=== PATIENT | male | born 1995 | race Two or more races ===

== ENCOUNTER 2018-02-10 02:42 | Emergency (ER) | payer MEDICAID, OTHER ==
[~2018-02-10] VITALS: Ht 170.2 cm; Wt 77.3 kg
[~2018-02-10 02:42] MED LIST: BENZ1LOZ61 PO; GUAI120015 PO; NAPR-996 PO; PSEU-259 PO
[2018-02-10 03:11] LABS: BASOPHILS # (AUTO) 0.1 X10'3 (0-0.2); BASOPHILS % (AUTO) 0.7 % (0-1); EOSINOPHILS # (AUTO) 0.2 X10'3 (0-0.9); EOSINOPHILS % (AUTO) 1.7 % (0-6); HEMATOCRIT 49.4 % (42.0-52.0); HEMOGLOBIN 16.9 g/dl (14.0-17.9); LYMPHOCYTES # (AUTO) 3.5 X10'3 (1.1-4.8); MEAN CORPUSCULAR HGB CONC 34.2 % (33.0-36.5); MEAN CORPUSCULAR VOLUME 93.6 FL (78-98); MEAN PLATELET VOLUME 8.1 FL (7.4-10.4); MONOCYTES # (AUTO) 0.5 X10'3 (0-0.9); NEUTROPHILS # (AUTO) 4.9 X10'3 (1.8-7.7); NEUTROPHILS % (AUTO) 53.6 % (42-75); PLATELET COUNT 263 X10'3 (140-440); RED BLOOD COUNT 5.28 X10'6 (4.70-6.10); RED CELL DISTRIBUTION WIDTH 14.2 % (11.5-14.5); WHITE BLOOD COUNT 9.1 X10'3 (4.5-11.0)
[2018-02-10 03:21] LABS: PARTIAL THROMBOPLASTIN TIME 24 SECONDS (22-32)
[2018-02-10 03:24] LABS: ALANINE AMINOTRANSFERASE 264 U/L (12-78); ALBUMIN 4.1 G/DL (3.4-5.0); ALBUMIN/GLOBULIN RATIO 0.8 (1.1-1.5); ALKALINE PHOSPHATASE 78 IU/L (46-116); ANION GAP 10 (8-16); ASPARTATE AMINO TRANSFERASE 115 U/L (10-37); BILIRUBIN,TOTAL 0.7 MG/DL (0.1-1.0); BLOOD UREA NITROGEN 12 MG/DL (7-18); BUN/CREATININE RATIO 10.5 (5.4-32.0); CALCIUM 8.8 MG/DL (8.5-10.1); CHLORIDE 103 MMOL/L (99-107); CREATININE 1.14 MG/DL (0.60-1.10); GLUCOSE 161 MG/DL (70-104); POTASSIUM 3.6 MMOL/L (3.5-5.1); SODIUM 140 MMOL/L (135-145); TOTAL CARBON DIOXIDE 26.6 MMOL/L (24-32); TOTAL PROTEIN 9.3 G/DL (6.4-8.2); eGFR 80 ML/MIN
[2018-02-10] MEDS ORDERED: normal saline 1000ML IV soln IVB ONE (03:35)
[2018-02-10 03:45] LABS: URINE AMPHETAMINE SCREEN NEGATIVE (Neg); URINE BARBITUATE SCREEN NEGATIVE (Neg); URINE BENZODIAZEPINES SCREEN NEGATIVE (Neg); URINE CANNABINOID SCREEN NEGATIVE (Neg); URINE COCAINE SCREEN NEGATIVE (Neg); URINE METHADONE SCREEN NEGATIVE (Neg); URINE OPIATE SCREEN NEGATIVE (Neg); URINE PHENCYCLIDINE SCREEN NEGATIVE (Neg)
[2018-02-10 03:48] LABS: CLARITY,URINE CLEAR (Clear); COLOR,URINE YELLOW (Yellow); GLUCOSE, URINE NEGATIVE (Neg); KETONES,URINE NEGATIVE (Neg); LEUKOCYTE ESTERASE ,URINE NEGATIVE (Neg); NITRITES, URINE NEGATIVE (Neg); OCCULT BLOOD,URINE LARGE (Neg); PROTEIN,URINE NEGATIVE (Neg); UROBILINOGEN,URINE 0.2 E.U/dL (0.2-1.0)
[2018-02-10 03:51] LABS: ETHANOL 0.135 GM/DL (0.0-0.010)
[2018-02-10 03:58] LABS: UA COLLECTION TYPE CLN CATCH MIDSTREAM
[2018-02-10 03:59] LABS: BACTERIA,URINE NONE SEEN /HPF (Neg); SQUAMOUS EPITHELIAL CELL,UR NONE SEEN /LPF (FEW); WBC,URINE NONE SEEN /HPF (0-4)
[2018-02-10] MEDS ORDERED: normal saline 1000ml 1,000 ML IV ONE (05:00)
[2018-02-10] MEDS ORDERED: acetaminophen 325mg tablet PO ONE (05:20)
[2018-02-10 05:37] VITALS: BP 125/54
== END 2018-02-10 06:08 | disposition home or self-care (01) ==
LOC: ER 02:42
DX: F10.929 Alcohol use, unspecified with intoxication, unspecified (principal); R07.9 Chest pain, unspecified; R00.0 Tachycardia, unspecified; H53.8 Other visual disturbances; Z79.899 Other long term (current) drug therapy
CPT/HCPCS: 36415; 70450; 71045; 80053; 80305; 80320; 81001; 82140; 83605; 84484; 85025; 85610; 85730; 87040; 93005; 99285; J7030

== ENCOUNTER 2019-12-11 21:46 | Inpatient (IN) | payer MEDICAID ==
[~2019-12-11] VITALS: Ht 170.2 cm; Wt 104.5 kg
[2019-12-11] MEDS ORDERED: morphine 4 MG/ML inj SYRINge IV ONE (22:35)
[2019-12-11] MEDS ORDERED: normal saline 1000ML IV soln IVB ONE ×2 (22:35→23:25)
[2019-12-11] MEDS ORDERED: ondansetron/PF 4mg/2ml inj IV ONE (22:35)
[2019-12-11 22:39] LABS: BASOPHILS # (AUTO) 0.1 X10'3 (0-0.2); BASOPHILS % (AUTO) 1.1 % (0-1); EOSINOPHILS # (AUTO) 0.1 X10'3 (0-0.9); EOSINOPHILS % (AUTO) 0.8 % (0-6); HEMATOCRIT 50.1 % (42.0-52.0); HEMOGLOBIN 17.6 g/dl (14.0-17.9); LYMPHOCYTES # (AUTO) 2.9 X10'3 (1.1-4.8); LYMPHOCYTES % (AUTO) 26.3 % (21-51); MEAN CORPUSCULAR HEMOGLOBIN 33.7 PG (27.0-31.0); MEAN CORPUSCULAR HGB CONC 35.1 g/dL (33.0-36.5); MEAN CORPUSCULAR VOLUME 95.9 FL (78-98); MEAN PLATELET VOLUME 9.8 FL (7.4-10.4); MONOCYTES # (AUTO) 0.7 X10'3 (0-0.9); MONOCYTES % (AUTO) 6.5 % (2-12); NEUTROPHILS # (AUTO) 7.2 X10'3 (1.8-7.7); NEUTROPHILS % (AUTO) 65.3 % (42-75); PLATELET COUNT 292 X10'3 (140-440); RED BLOOD COUNT 5.22 X10'6 (4.70-6.10); RED CELL DISTRIBUTION WIDTH 12.9 % (11.5-14.5)
[2019-12-11 22:40] LABS: CLARITY,URINE CLEAR (Clear); COLOR,URINE STRAW (Yellow); GLUCOSE, URINE >=1000 mg/dl (Neg); KETONES,URINE >=80 mg/dl (Neg); LEUKOCYTE ESTERASE ,URINE NEGATIVE (Neg); NITRITES, URINE NEGATIVE (Neg); OCCULT BLOOD,URINE TRACE-INTACT (Neg); PH,URINE 5.5 (4.8-8.0); PROTEIN,URINE 30 mg/dl (Neg); UROBILINOGEN,URINE 0.2 E.U/dL (0.2-1.0)
[2019-12-11 22:45] LABS: UA COLLECTION TYPE CLN CATCH MIDSTREAM
[2019-12-11 22:48] LABS: ALBUMIN 4.4 G/DL (3.4-5.0); ALBUMIN/GLOBULIN RATIO 0.9 (1.1-1.5); ALKALINE PHOSPHATASE 125 IU/L (46-116); BACTERIA,URINE NONE SEEN /HPF (Neg); BLOOD UREA NITROGEN 13 MG/DL (7-18); CALCIUM 9.1 MG/DL (8.5-10.1); CELLULAR CAST 0-4 /LPF (NEGATIVE); CHLORIDE 93 MMOL/L (99-107); CREATININE 1.44 MG/DL (0.60-1.10); LIPASE 235 U/L (73-393); RBC,URINE 0-2 /HPF (0-2); SQUAMOUS EPITHELIAL CELL,UR NONE SEEN /LPF (FEW); TOTAL CARBON DIOXIDE 15.7 MMOL/L (24-32); TOTAL PROTEIN 9.3 G/DL (6.4-8.2); WBC,URINE 0-4 /HPF (0-4); eGFR 60 ML/MIN
[2019-12-11 23:01] LABS: ALANINE AMINOTRANSFERASE 138 U/L (12-78); ANION GAP 21 (8-16); POTASSIUM 4.2 MMOL/L (3.5-5.1); SODIUM 130 MMOL/L (135-145)
[2019-12-11 23:14] LABS: GLUCOSE 565 MG/DL (70-104)
[2019-12-11 23:15] LABS: ASPARTATE AMINO TRANSFERASE 79 U/L (10-37)
[2019-12-11] MEDS ORDERED: insulin regular, human U-100 3ml vial - multi-dose IV ONE (23:25)
[2019-12-11] MEDS ORDERED: magnesium 4gm in 100ml NS 100 ML IV PRN (23:45)
[2019-12-11] MEDS ORDERED: magnesium 2GM in 50ml NS 50 ML IV PRN (23:45)
[2019-12-11] MEDS ORDERED: potassium CL 10mEq/100ml bag 100 ML IV PRN ×4 (23:45→23:50)
[2019-12-11] MEDS ORDERED: ondansetron/PF 4mg/2ml inj IV PRN (23:45)
[2019-12-11] MEDS ORDERED: normal saline 1000ml 1,000 ML IV SCH ×2 (23:45→23:47)
[2019-12-11] MEDS ORDERED: magnesium Cl slow-release 64mg tablet PO PRN (23:45)
[2019-12-11] MEDS ORDERED: acetaminophen 325mg tablet PO PRN (23:45)
[2019-12-11] MEDS ORDERED: potassium Cl 20 mEq SR tablet PO PRN ×3 (23:45→23:50)
[2019-12-11] MEDS ORDERED: potassium CL 20mEq in D5-1/2NS 1,000 ML IV PRN (23:47)
[2019-12-11] MEDS ORDERED: sodium bicarbonate (8.4%) inj. 50 MEQ in dextrose 5% water 500ml 250 ML IV PRN (23:47)
[2019-12-11] MEDS ORDERED: sodium bicarbonate (8.4%) inj. 100 MEQ in dextrose 5% water 500ml 500 ML IV PRN (23:47)
[2019-12-11] MEDS ORDERED: Insulin Reg/NS 100units/100mL 100 ML IV SCH (23:47)
[2019-12-11] MEDS: normal saline 1000ml 1,000 ML IV SCH (23:47)
[2019-12-11] MEDS ORDERED: Neutra Phos packet PO PRN (23:50)
[2019-12-11] MEDS ORDERED: sodium phosphate inj. 15 MMOL in dextrose 5%-water 250 ML IV PRN (23:50)
[2019-12-11] MEDS ORDERED: insulin regular, human U-100 3ml vial - multi-dose IV PRN (23:50)
[2019-12-11] MEDS ORDERED: sodium phosphate inj. 30 MMOL in dextrose 5%-water 250 ML IV PRN (23:50)
[2019-12-11 23:56] LABS: ABG BASE EXCESS -13.3 mmol/L (-2.0-3.0); ABG HCO3 11.7 mmol/L (22.0-26.0); ABG OXYGEN SATURATION 97.3 % (95-98); ABG PCO2 (T) 25.9 mmHg (35.0-45.0); ABG PO2 (T) 99.6 mmHg (83-108); ALLEN'S TEST POSITIVE; FCOHb 0.5 % (0.5-1.5); FMetHb 0.2 % (0.3-1.12); FO2Hb 96.6 % (94-100); PATIENT TEMPERATURE 36.6; TOTAL HEMOGLOBIN 16.6 G/dl (14.0-17.9)
[2019-12-12] MEDS ORDERED: NO HOME MEDS (00:30)
--- NOTE | 2019-12-12 01:39 | NUR ---
i have rec'd report from Álvaro REESE
--- NOTE | 2019-12-12 02:00 | NUR ---
pt walked to bed. oriented to unit. insulin and ivf running. skin check done.
[2019-12-12 02:04] LABS: ALBUMIN 3.6 G/DL (3.4-5.0); ANION GAP 16 (8-16); BLOOD UREA NITROGEN 9 MG/DL (7-18); BUN/CREATININE RATIO 8.7 (5.4-32.0); CALCIUM 7.7 MG/DL (8.5-10.1); CHLORIDE 103 MMOL/L (99-107); CREATININE 1.04 MG/DL (0.60-1.10); GLUCOSE 205 MG/DL (70-104); MAGNESIUM 1.7 MG/DL (1.5-2.4); PHOSPHORUS 2.3 MG/DL (2.3-4.5); POTASSIUM 3.6 MMOL/L (3.5-5.1); SODIUM 135 MMOL/L (135-145); TOTAL CARBON DIOXIDE 15.7 MMOL/L (24-32); eGFR 88 ML/MIN
[2019-12-12 02:45] VITALS: BP 155/93
[2019-12-12] MEDS: morphine 2 MG/ML inj. syringe IV PRN (02:54)
[2019-12-12] MEDS: normal saline 1000ml 1,000 ML IV SCH ×3 (02:57→23:18)
[2019-12-12 05:03] LABS: BASOPHILS % (AUTO) 0.5 % (0-1); EOSINOPHILS # (AUTO) 0.2 X10'3 (0-0.9); EOSINOPHILS % (AUTO) 1.8 % (0-6); HEMATOCRIT 43.1 % (42.0-52.0); HEMOGLOBIN 15.1 g/dl (14.0-17.9); LYMPHOCYTES # (AUTO) 2.7 X10'3 (1.1-4.8); LYMPHOCYTES % (AUTO) 30.1 % (21-51); MEAN CORPUSCULAR HGB CONC 35.1 g/dL (33.0-36.5); MEAN PLATELET VOLUME 9.3 FL (7.4-10.4); MONOCYTES # (AUTO) 0.6 X10'3 (0-0.9); MONOCYTES % (AUTO) 7.1 % (2-12); NEUTROPHILS # (AUTO) 5.5 X10'3 (1.8-7.7); NEUTROPHILS % (AUTO) 60.5 % (42-75); PLATELET COUNT 221 X10'3 (140-440); RED BLOOD COUNT 4.58 X10'6 (4.70-6.10); RED CELL DISTRIBUTION WIDTH 12.9 % (11.5-14.5); WHITE BLOOD COUNT 9.1 X10'3 (4.5-11.0)
[2019-12-12 05:16] LABS: ALBUMIN 3.4 G/DL (3.4-5.0); ANION GAP 14 (8-16); BLOOD UREA NITROGEN 6 MG/DL (7-18); BUN/CREATININE RATIO 5.9 (5.4-32.0); CALCIUM 7.7 MG/DL (8.5-10.1); CHLORIDE 104 MMOL/L (99-107); CREATININE 1.02 MG/DL (0.60-1.10); GLUCOSE 135 MG/DL (70-104); POTASSIUM 3.3 MMOL/L (3.5-5.1); SODIUM 136 MMOL/L (135-145); TOTAL CARBON DIOXIDE 17.9 MMOL/L (24-32); eGFR 90 ML/MIN
[2019-12-12] MEDS: potassium Cl 20 mEq SR tablet PO PRN ×3 (05:32→16:47)
--- NOTE | 2019-12-12 06:19 | NUR ---
Problems reprioritized. Patient report given, questions answered & plan of care reviewed with Nurys REESE.
[2019-12-12] MEDS ORDERED: DEXTROSE 10 % AND 0.45 % NACL 1,000 ML IV SCH (06:20)
[2019-12-12 07:00] VITALS: BP 142/88
[2019-12-12] MEDS ORDERED: Potassium Cl inj 20 MEQ in DEXTROSE 10 % AND 0.45 % NACL 990 ML IV SCH (07:12)
[2019-12-12] MEDS ORDERED: K and/or MAG REPLACEMENT MC SCH (08:00)
[2019-12-12] MEDS: K and/or MAG REPLACEMENT MC SCH ×2 (08:00→20:00)
[2019-12-12] MEDS: pantoprazole 40 MG vial IV SCH (08:03)
[2019-12-12 08:12] LABS: ALANINE AMINOTRANSFERASE 104 U/L (12-78); ALBUMIN 3.4 G/DL (3.4-5.0); ALBUMIN/GLOBULIN RATIO 0.9 (1.1-1.5); ALKALINE PHOSPHATASE 81 IU/L (46-116); ANION GAP 11 (8-16); ASPARTATE AMINO TRANSFERASE 56 U/L (10-37); BILIRUBIN,DIRECT 0.1 MG/DL (0-0.3); BILIRUBIN,TOTAL 0.8 MG/DL (0.1-1.0); BLOOD UREA NITROGEN 8 MG/DL (7-18); BUN/CREATININE RATIO 7.6 (5.4-32.0); CALCIUM 7.9 MG/DL (8.5-10.1); CHLORIDE 105 MMOL/L (99-107); CREATININE 1.05 MG/DL (0.60-1.10); GLUCOSE 76 MG/DL (70-104); PHOSPHORUS 2.6 MG/DL (2.3-4.5); POTASSIUM 3.2 MMOL/L (3.5-5.1); SODIUM 137 MMOL/L (135-145); TOTAL CARBON DIOXIDE 20.9 MMOL/L (24-32); TOTAL PROTEIN 7.4 G/DL (6.4-8.2); eGFR 87 ML/MIN
[2019-12-12] MEDS ORDERED: glucagon, human recombinant 1mg kit SUBCUT PRN (09:20)
[2019-12-12] MEDS ORDERED: MESSAGE TO PHARMACY PO ONE (09:20)
[2019-12-12] MEDS ORDERED: dextrose ORAL solution 15 GM/59 ML bottle PO PRN ×2 (09:20)
[2019-12-12] MEDS ORDERED: dextrose 50%-water 50ml dispensing syringe IV PRN ×2 (09:20)
[2019-12-12 10:09] LABS: ALBUMIN 3.1 G/DL (3.4-5.0); ANION GAP 9 (8-16); BLOOD UREA NITROGEN 8 MG/DL (7-18); BUN/CREATININE RATIO 7.7 (5.4-32.0); CALCIUM 7.5 MG/DL (8.5-10.1); CHLORIDE 104 MMOL/L (99-107); CREATININE 1.04 MG/DL (0.60-1.10); GLUCOSE 126 MG/DL (70-104); POTASSIUM 3.4 MMOL/L (3.5-5.1); SODIUM 136 MMOL/L (135-145); TOTAL CARBON DIOXIDE 23.2 MMOL/L (24-32); eGFR 88 ML/MIN
[2019-12-12 11:00] VITALS: BP 142/88
[2019-12-12] MEDS: insulin Lispro (HumaLOG) vial - multi-dose SQ SCH ×5 (11:13→19:20)
--- NOTE | 2019-12-12 12:43 | NUR ---
Page sent to Dr. Park regarding clarification of abd US PAGER ID: [phone] MESSAGE: re [phone] Candido Vang pt has abd US last night. Do you want a repeat? Thanks, Nurys x [phone]
[2019-12-12 15:00] VITALS: BP 112/76
--- NOTE | 2019-12-12 15:30 | NUR ---
DM consult re: "newly diagnosed diabetes". Per RN pt has been informed of new DM dx by MD. Pt seen at bedside provided with written and verbal DM education with referral to outpatient CDE course, RD contact information, new DM pamphlet, and new DM DX booklet. Pt reports hikes often, keeps gallon of water on himself at all times to stay hydrated. RD reviewed types of carbs, carb portion sizing, hydration importance, and protein/fiber sources. Pt reports no further questions at this time; RD encouraged pt to contact dietitian's office if further questions/concerns and attend CDE course for further education as outpatient. Pt presented with c/o abdominal pain with nausea and an episode of emesis. On admit pt with a BG of 565 mg/dL and abnormal LFTs. Pt admitted with DKA. Pt s/p ultrasound of the abdomen which shows multiple gallstones per H&P. Transaminitis improving per MD notes. Patient's diet has been advanced to CHO controlled and pt documented with 100% PO intake first meal. Will continue to follow. Rec: 1. continue carb controlled diet 2. monitor for ONS needs 3. bowel care as needed 4. wt per rx Addendum: 12/12/19 at [address] Amended: Links added.
--- NOTE | 2019-12-12 15:59 | NUR ---
Patient in room PCU 3028. I have received report from Nurys REESE and had the opportunity to ask questions and assume patient care. Pt. is resting comfortably in no apparent distress.
--- NOTE | 2019-12-12 18:14 | NUR ---
Patient in room PCU 3028. I have received report from Nancy REESE and had the opportunity to ask questions and assume patient care.
--- NOTE | 2019-12-12 18:15 | NUR ---
Patient in room PCU 3028. I have received report from Herlinda REESE and had the opportunity to ask questions and assume patient care. pt resting, ate all of dinner
[2019-12-12 19:00] VITALS: BP 148/64
--- NOTE | 2019-12-12 19:30 | NUR ---
pt is constipated. walking around unit now. gave some prune juice. headphones were dropped off and he has them on
[2019-12-12] MEDS: insulin glargine (Lantus) pen - multi-dose SQ SCH (21:09)
--- NOTE | 2019-12-12 23:10 | NUR ---
PT REFUSED VITALS
--- NOTE | 2019-12-12 23:28 | NUR ---
PT WANTED SNACK. STATED HE FELT SWEATY WHEN HE WOKE. BLOOD SUGAR 114. TEMP 98.2. STRING CHEESE AND YOGURT GIVEN
[2019-12-13 03:17] VITALS: BP 118/69
--- NOTE | 2019-12-13 05:04 | NUR ---
TELE DC, 24 HR WAS UP
[2019-12-13 05:57] LABS: ALANINE AMINOTRANSFERASE 157 U/L (12-78); ALBUMIN 3.1 G/DL (3.4-5.0); ALBUMIN/GLOBULIN RATIO 0.9 (1.1-1.5); ALKALINE PHOSPHATASE 73 IU/L (46-116); ANION GAP 14 (8-16); ASPARTATE AMINO TRANSFERASE 137 U/L (10-37); BILIRUBIN,TOTAL 1.1 MG/DL (0.1-1.0); BLOOD UREA NITROGEN 7 MG/DL (7-18); BUN/CREATININE RATIO 7.6 (5.4-32.0); CALCIUM 8.2 MG/DL (8.5-10.1); CHLORIDE 103 MMOL/L (99-107); CREATININE 0.92 MG/DL (0.60-1.10); GLUCOSE 206 MG/DL (70-104); MAGNESIUM 1.8 MG/DL (1.5-2.4); POTASSIUM 3.4 MMOL/L (3.5-5.1); SODIUM 137 MMOL/L (135-145); TOTAL CARBON DIOXIDE 20.5 MMOL/L (24-32); TOTAL PROTEIN 6.7 G/DL (6.4-8.2); eGFR > 90 ML/MIN
--- NOTE | 2019-12-13 06:11 | NUR ---
Problems reprioritized. Patient report given, questions answered & plan of care reviewed with Michela anderson.
--- NOTE | 2019-12-13 06:12 | NUR ---
Patient in room PCU 3028. I have received report from Nancy REESE and had the opportunity to ask questions and assume patient care.
[2019-12-13 07:00] VITALS: BP 113/47
[2019-12-13] MEDS: pantoprazole 40 MG vial IV SCH (07:45)
[2019-12-13] MEDS: K and/or MAG REPLACEMENT MC SCH ×2 (08:00→19:18)
[2019-12-13] MEDS: insulin Lispro (HumaLOG) vial - multi-dose SQ SCH ×6 (09:19→21:14)
[2019-12-13 11:00] VITALS: BP_SYST 129; BP_DIAS 7; BP_DIAS 73
[2019-12-13] MEDS: docusate sod 100mg capsule PO SCH ×2 (11:06→19:08)
[2019-12-13] MEDS: potassium Cl 20 mEq SR tablet PO PRN ×3 (11:06→19:19)
[2019-12-13] MEDS: normal saline 1000ml 1,000 ML IV SCH ×3 (11:08→22:49)
[2019-12-13 15:00] VITALS: BP 111/94
--- NOTE | 2019-12-13 17:17 | NUR ---
Paged Dr. Marroquin: PAGER ID: [phone] MESSAGE: RE: Candido Vang [id number]. Please call to discuss patient's lantus/Humalog. Thank you. Shona 1944
--- NOTE | 2019-12-13 18:58 | NUR ---
Problems reprioritized. Patient report given, questions answered & plan of care reviewed with Marlene REESE. Patient stable at transfer of care.
[2019-12-13 19:00] VITALS: BP 145/82
[2019-12-13] MEDS ORDERED: insulin glargine (Lantus) pen - multi-dose SQ ONE (21:00)
[2019-12-13] MEDS: insulin glargine (Lantus) pen - multi-dose SQ SCH (21:00)
[2019-12-13 23:00] VITALS: BP 151/76
[2019-12-14 02:00] VITALS: BP 161/90
[2019-12-14 06:00] VITALS: BP 101/54
--- NOTE | 2019-12-14 06:30 | NUR ---
received report from justin garnica
--- NOTE | 2019-12-14 06:40 | NUR ---
Reported off to Val REESE and student RN Elizabeth. Patient resting with relaxed and unlabored respirations on room air in no apparent distress. Call light and items of frequent use within reach.
[2019-12-14] MEDS: docusate sod 100mg capsule PO SCH ×2 (07:38→19:29)
[2019-12-14] MEDS: pantoprazole 40 MG vial IV SCH (07:40)
[2019-12-14] MEDS: K and/or MAG REPLACEMENT MC SCH ×2 (07:45→20:00)
[2019-12-14] MEDS: insulin Lispro (HumaLOG) vial - multi-dose SQ SCH ×3 (08:23→19:31)
[2019-12-14] MEDS: morphine 2 MG/ML inj. syringe IV PRN ×2 (08:34→19:29)
[2019-12-14] MEDS: normal saline 1000ml 1,000 ML IV SCH ×2 (08:41→19:29)
--- NOTE | 2019-12-14 10:37 | NUR ---
CALLED TEAM ASSISTANT AND ASKED ABOUT PTS DM CONSULT, TEAM ASSISTANT TOLD ME THAT GAIL HAD ALREADY SEEN AND EDUCATED PT ON WEDNESDAY, CONTINUE TO EDUCATE
[2019-12-14 13:00] VITALS: BP 155/75
--- NOTE | 2019-12-14 13:17 | NUR ---
Reassessment: Pt PO 100% carb controlled meals meeting needs. LBM 12/11. Glu 258 at this time on hyperglycemia protocol. No nutrition concerns at this time. Will continue to monitor. Rec: 1. continue carb controlled diet 2. bowel care as needed 3. scaled wts; currently no wt documented in EMR Addendum: 12/14/19 at [address] Amended: Links added.
[2019-12-14 18:00] VITALS: BP 129/68
--- NOTE | 2019-12-14 18:17 | NUR ---
GAVE REPORT TO MARY ANN CRUZ
--- NOTE | 2019-12-14 18:30 | NUR ---
Patient in room PCU 3028. I have received report from Val REESE and had the opportunity to ask questions and assume patient care.
[2019-12-14] MEDS ORDERED: insulin glargine (Lantus) pen - multi-dose SQ SCH (21:00)
[2019-12-14 22:00] VITALS: BP 134/80
[2019-12-15] MEDS: morphine 2 MG/ML inj. syringe IV PRN (00:56)
[2019-12-15 02:00] VITALS: BP 135/70
[2019-12-15 05:16] LABS: BASOPHILS % (AUTO) 0.6 % (0-1); EOSINOPHILS # (AUTO) 0.1 X10'3 (0-0.9); EOSINOPHILS % (AUTO) 2.1 % (0-6); HEMATOCRIT 39.9 % (42.0-52.0); HEMOGLOBIN 13.9 g/dl (14.0-17.9); LYMPHOCYTES # (AUTO) 2.7 X10'3 (1.1-4.8); LYMPHOCYTES % (AUTO) 42.5 % (21-51); MEAN CORPUSCULAR HEMOGLOBIN 32.9 PG (27.0-31.0); MEAN CORPUSCULAR HGB CONC 34.8 g/dL (33.0-36.5); MEAN CORPUSCULAR VOLUME 94.7 FL (78-98); MEAN PLATELET VOLUME 9.1 FL (7.4-10.4); MONOCYTES # (AUTO) 0.5 X10'3 (0-0.9); MONOCYTES % (AUTO) 8.5 % (2-12); NEUTROPHILS # (AUTO) 2.9 X10'3 (1.8-7.7); NEUTROPHILS % (AUTO) 46.3 % (42-75); PLATELET COUNT 213 X10'3 (140-440); RED BLOOD COUNT 4.22 X10'6 (4.70-6.10); RED CELL DISTRIBUTION WIDTH 13.2 % (11.5-14.5); WHITE BLOOD COUNT 6.3 X10'3 (4.5-11.0)
[2019-12-15 05:33] LABS: ALANINE AMINOTRANSFERASE 153 U/L (12-78); ALBUMIN/GLOBULIN RATIO 0.7 (1.1-1.5); ALKALINE PHOSPHATASE 65 IU/L (46-116); ANION GAP 8 (8-16); ASPARTATE AMINO TRANSFERASE 92 U/L (10-37); BILIRUBIN,TOTAL 0.7 MG/DL (0.1-1.0); BLOOD UREA NITROGEN 10 MG/DL (7-18); BUN/CREATININE RATIO 8.8 (5.4-32.0); CALCIUM 8.1 MG/DL (8.5-10.1); CHLORIDE 104 MMOL/L (99-107); CREATININE 1.14 MG/DL (0.60-1.10); GLUCOSE 206 MG/DL (70-104); POTASSIUM 3.4 MMOL/L (3.5-5.1); SODIUM 138 MMOL/L (135-145); TOTAL PROTEIN 7.1 G/DL (6.4-8.2); eGFR 79 ML/MIN
[2019-12-15 06:00] VITALS: BP 123/65
--- NOTE | 2019-12-15 06:07 | NUR ---
Problems reprioritized. Patient report given, questions answered & plan of care reviewed with Eda REESE.
--- NOTE | 2019-12-15 06:30 | NUR ---
Patient in room PCU 3028. I have received report from MARY ANN Carter and had the opportunity to ask questions and assume patient care.
[2019-12-15] MEDS: normal saline 1000ml 1,000 ML IV SCH (07:20)
[2019-12-15] MEDS: K and/or MAG REPLACEMENT MC SCH (08:00)
[2019-12-15] MEDS: docusate sod 100mg capsule PO SCH (08:12)
[2019-12-15] MEDS: pantoprazole 40 MG vial IV SCH (08:12)
[2019-12-15] MEDS: insulin Lispro (HumaLOG) vial - multi-dose SQ SCH ×2 (08:16→12:55)
[2019-12-15] MEDS ORDERED: HUM7525 SQ (10:40)
[2019-12-15] MEDS ORDERED: LANTUS SQ (10:40)
[2019-12-15 11:00] VITALS: BP 120/74
--- NOTE | 2019-12-15 12:34 | NUR ---
PAGER ID: [phone] MESSAGE: [id number]. pt. Kip Vang. Fay called about the new insulin orders that we're discharging pt. on. his insurance doesn't cover those specific ones. they would cover Basaglar for long acting and admelog for rapid acting. Tana [phone]
--- NOTE | 2019-12-15 14:55 | NUR ---
pt. discharged from facility at 1310. pt. was walked down to lobby by staff and picked up by his family. pt. signed and understood all paperwork. pt. IV was d/c intact. pt. new meds were called into [facility] pt. is in process of setting up PCP with the help of case mgmt. pt. will be seen at [facility] in [place], [place]. pt. left with all belongings.
== END 2019-12-15 13:10 | disposition home or self-care (01) | DRG 420 ==
LOC: ER 21:46 → ED HOLD 23:45 → UNDOADMIN 12-12 00:12 → ED HOLD 12-12 01:49 → PCU 3S 12-12 01:49 → UNDODISIN 12-12 14:34
PROVIDERS: ADMIT Internal Medicine; ATTEND Internal Medicine
DX: E13.10 Other specified diabetes mellitus with ketoacidosis without coma (principal); N17.9 Acute kidney failure, unspecified; K80.20 Calculus of gallbladder without cholecystitis without obstruction; E87.6 Hypokalemia; E86.0 Dehydration; E87.1 Hypo-osmolality and hyponatremia; R35.0 Frequency of micturition; R94.5 Abnormal results of liver function studies; R74.0 Nonspecific elevation of levels of transaminase and lactic acid dehydrogenase [LDH]
CPT/HCPCS: 36415; 36600; 76700; 76937; 80048; 80053; 81001; 82248; 82803; 82948; 83036; 83690; 83735; 84100; 85018; 85025; 87081; 96361; 96374; 96375; 99285; C9113; G0378; J1815; J2270; J2405; J3480; J7030

== ENCOUNTER 2020-09-13 21:14 | Emergency (ER) | payer MEDICAID ==
[~2020-09-13] VITALS: Ht 170.2 cm; Wt 100.0 kg
[~2020-09-13 21:14] MED LIST changes: -BENZ1LOZ61 PO; -GUAI120015 PO; +HUM7525 SQ; -NAPR-996 PO; -PSEU-259 PO
[2020-09-13] MEDS ORDERED: insulin glargine (Lantus) pen - multi-dose SQ ONE (21:30)
== END 2020-09-13 21:48 | disposition home or self-care (01) ==
LOC: ER 21:15
DX: Z02.89 Encounter for other administrative examinations (principal); E11.9 Type 2 diabetes mellitus without complications; I10 Essential (primary) hypertension; Z98.890 Other specified postprocedural states; Z72.89 Other problems related to lifestyle; Z79.4 Long term (current) use of insulin
CPT/HCPCS: 82948; 96372; 99283; J1815

== ENCOUNTER 2021-01-27 07:39 | Emergency (ER) | payer MEDICAID, OTHER ==
[~2021-01-27] VITALS: Ht 170.2 cm; Wt 100.0 kg
[2021-01-27] MEDS ORDERED: LIDOcaine 1% 30ml preserv. free vial ONE (08:00)
[2021-01-27] MEDS ORDERED: HYDROcodone/acetaminophen 5mg/325mg tablet PO ONE (09:40)
[2021-01-27] MEDS ORDERED: CefTRIAXone 1000mg IM Kit (w/lidocaine diluent) IM ONE (10:35)
[2021-01-27] MEDS ORDERED: CEPH250T PO (10:40)
[2021-01-27 12:47] VITALS: BP 150/86
== END 2021-01-27 13:38 | disposition home or self-care (01) ==
LOC: ER 07:40
DX: S62.636B Displaced fracture of distal phalanx of right little finger, initial encounter for open fracture (principal); I10 Essential (primary) hypertension; E11.9 Type 2 diabetes mellitus without complications; Z72.89 Other problems related to lifestyle; Z87.81 Personal history of (healed) traumatic fracture; Z79.2 Long term (current) use of antibiotics; Z79.899 Other long term (current) drug therapy; W26.8XXA Contact with other sharp object(s), not elsewhere classified, initial encounter; Y93.89 Activity, other specified; Y92.89 Other specified places as the place of occurrence of the external cause; Y99.8 Other external cause status
CPT/HCPCS: 12013; 73140; 82948; 96372; 99284; J0696; J2001; 99283

== ENCOUNTER 2021-01-29 12:30 | Emergency (ER) | payer OTHER ==
[~2021-01-29] VITALS: Ht 170.2 cm; Wt 92.0 kg
[~2021-01-29 12:30] MED LIST changes: +CEPH250T PO
[2021-01-29 13:44] VITALS: BP 135/86
[2021-01-29] MEDS ORDERED: HYDR-3965 PO (14:55)
== END 2021-01-29 15:15 | disposition home or self-care (01) ==
LOC: ER 12:30
DX: S62.636D Displaced fracture of distal phalanx of right little finger, subsequent encounter for fracture with routine healing (principal); I10 Essential (primary) hypertension; E11.9 Type 2 diabetes mellitus without complications; Z48.00 Encounter for change or removal of nonsurgical wound dressing; Z98.890 Other specified postprocedural states; Z72.89 Other problems related to lifestyle; Z79.2 Long term (current) use of antibiotics; Z79.4 Long term (current) use of insulin; X58.XXXD Exposure to other specified factors, subsequent encounter
CPT/HCPCS: 29125; 99283

== ENCOUNTER 2021-05-30 09:52 | Emergency (ER) | payer MEDICAID, OTHER ==
[~2021-05-30 09:52] MED LIST changes: -CEPH250T PO
[2021-06-01] MEDS ORDERED: ACET-1025 PO (16:41)
== END 2021-05-30 12:24 | disposition left against medical advice (07) ==
LOC: ER 09:53
DX: U07.1 COVID-19 (principal); Z53.21 Procedure and treatment not carried out due to patient leaving prior to being seen by health care provider

== ENCOUNTER → 2021-06-01 | Emergency (ER) | payer MEDICAID ==
[~2021-06-01] MED LIST changes: +ACET-1025 PO; +ketorolac tromethamine 15mg/ml inj. IM ONE
== END | disposition home or self-care (01) ==
LOC: ER 16:14
DX: U07.1 COVID-19 (principal); R06.02 Shortness of breath; I10 Essential (primary) hypertension; E11.9 Type 2 diabetes mellitus without complications; Z87.81 Personal history of (healed) traumatic fracture; Z72.89 Other problems related to lifestyle; Z98.890 Other specified postprocedural states; Z79.4 Long term (current) use of insulin; Z79.899 Other long term (current) drug therapy
CPT/HCPCS: 71045; 99283

== ENCOUNTER → 2021-06-06 | Emergency (ER) | payer MEDICAID ==
[~2021-06-06] VITALS: Ht 170.2 cm; Wt 97.7 kg
[~2021-06-06] MED LIST changes: -ketorolac tromethamine 15mg/ml inj. IM ONE
[2021-06-06 22:23] VITALS: BP 131/76
== END | disposition left against medical advice (07) ==
LOC: ER 22:15
DX: R05.9 Cough, unspecified (principal); Z53.21 Procedure and treatment not carried out due to patient leaving prior to being seen by health care provider

== ENCOUNTER 2022-11-11 12:48 | Emergency (ER) | payer MEDICAID ==
[~2022-11-11] VITALS: Ht 170.2 cm; Wt 104.5 kg
[~2022-11-11 12:48] MED LIST changes: -ACET-1025 PO
[2022-11-11 13:31] VITALS: BP 118/85
== END 2022-11-11 13:39 | disposition left against medical advice (07) ==
LOC: ER 12:49
DX: R00.0 Tachycardia, unspecified (principal); Z53.21 Procedure and treatment not carried out due to patient leaving prior to being seen by health care provider
CPT/HCPCS: 82948; 93005; 99281

== ENCOUNTER 2023-06-09 12:41 | Emergency (ER) | payer MEDICAID ==
[~2023-06-09] VITALS: Ht 172.7 cm; Wt 117.7 kg
--- NOTE | 2023-06-09 13:07 | NUR ---
MSE COMPLETED BY AUGUSTINE GONZALEZ WHO ASKS THAT THIS PT BE PLACED IN 19 FOR SERIAL BG CHECKS
[2023-06-09 13:15] VITALS: BP 130/82; PULSE 98; RESP 19; TEMP 98.4; O2SAT 98
[2023-06-09 13:40] LABS: BILIRUBIN,URINE NEGATIVE (Neg); CLARITY,URINE CLEAR (Clear); COLOR,URINE STRAW (Yellow); GLUCOSE, URINE NEGATIVE (Neg); KETONES,URINE NEGATIVE (Neg); LEUKOCYTE ESTERASE ,URINE NEGATIVE (Neg); NITRITES, URINE NEGATIVE (Neg); OCCULT BLOOD,URINE NEGATIVE (Neg); PROTEIN,URINE NEGATIVE (Neg); UROBILINOGEN,URINE 0.2 E.U/dL (0.2-1.0)
[2023-06-09 13:43] LABS: BASOPHILS # (AUTO) 0.1 X10'3 (0-0.2); EOSINOPHILS # (AUTO) 0.1 X10'3 (0-0.9); EOSINOPHILS % (AUTO) 1.1 % (0-6); HEMATOCRIT 48.9 % (42.0-52.0); HEMOGLOBIN 16.8 g/dl (14.0-17.9); LYMPHOCYTES # (AUTO) 2.4 X10'3 (1.1-4.8); LYMPHOCYTES % (AUTO) 33.9 % (21-51); MEAN CORPUSCULAR HEMOGLOBIN 32.7 PG (27.0-31.0); MEAN CORPUSCULAR HGB CONC 34.3 g/dL (33.0-36.5); MEAN CORPUSCULAR VOLUME 95.3 FL (78-98); MEAN PLATELET VOLUME 8.3 FL (7.4-10.4); MONOCYTES # (AUTO) 0.4 X10'3 (0-0.9); MONOCYTES % (AUTO) 6.5 % (2-12); NEUTROPHILS % (AUTO) 57.5 % (42-75); PLATELET COUNT 252 X10'3 (140-440); RED BLOOD COUNT 5.13 X10'6 (4.70-6.10); RED CELL DISTRIBUTION WIDTH 13.1 % (11.5-14.5)
[2023-06-09 13:48] LABS: UA COLLECTION TYPE CLN CATCH MIDSTREAM
[2023-06-09 13:54] LABS: ALANINE AMINOTRANSFERASE 183 U/L (12-78); ALBUMIN 3.8 G/DL (3.4-5.0); ALBUMIN/GLOBULIN RATIO 0.8 (1.1-1.5); ALKALINE PHOSPHATASE 73 IU/L (46-116); ANION GAP 13 (8-16); ASPARTATE AMINO TRANSFERASE 107 U/L (10-37); BILIRUBIN,TOTAL 0.9 MG/DL (0.1-1.0); BLOOD UREA NITROGEN 7 MG/DL (7-18); BUN/CREATININE RATIO 7.3 (10.0-20.0); CALCIUM 8.7 MG/DL (8.5-10.1); CHLORIDE 100 MMOL/L (99-107); CREATININE 0.96 MG/DL (0.60-1.10); GLUCOSE 227 MG/DL (70-104); POTASSIUM 3.7 MMOL/L (3.5-5.1); SODIUM 135 MMOL/L (135-145); TOTAL CARBON DIOXIDE 22.2 MMOL/L (24-32); TOTAL PROTEIN 8.3 G/DL (6.4-8.2); eCRCL 111 ML/MIN; eGFR > 90 ML/MIN
== END 2023-06-09 15:13 | disposition home or self-care (01) ==
LOC: ER 12:41
DX: E11.65 Type 2 diabetes mellitus with hyperglycemia (principal); I10 Essential (primary) hypertension; Z72.89 Other problems related to lifestyle; Z87.81 Personal history of (healed) traumatic fracture
CPT/HCPCS: 36415; 80053; 81003; 82948; 85025; 99283

== ENCOUNTER 2023-07-20 07:18 | Inpatient (IN) | payer MEDICAID ==
[~2023-07-20] VITALS: Ht 171.4 cm; Wt 113.0 kg
[2023-07-20] MEDS ORDERED: acetaminophen 325mg tablet PO ONE (07:25)
[2023-07-20] MEDS ORDERED: normal saline 1000ml 1,000 ML IV ONE ×2 (08:05→11:10)
[2023-07-20] MEDS ORDERED: ondansetron/PF 4mg/2ml inj IV ONE (08:05)
[2023-07-20] MEDS ORDERED: famotidine/PF 10 mg/ml inj IV ONE (08:05)
[2023-07-20 08:47] LABS: BASOPHILS % (AUTO) 0.2 % (0-1); EOSINOPHILS # (AUTO) 0.2 X10'3 (0-0.9); HEMOGLOBIN 16.3 g/dl (14.0-17.9); LYMPHOCYTES # (AUTO) 0.6 X10'3 (1.1-4.8); LYMPHOCYTES % (AUTO) 5.7 % (21-51); MEAN CORPUSCULAR HEMOGLOBIN 33.7 PG (27.0-31.0); MEAN CORPUSCULAR HGB CONC 35.5 g/dL (33.0-36.5); MEAN CORPUSCULAR VOLUME 94.8 FL (78-98); MEAN PLATELET VOLUME 9.3 FL (7.4-10.4); MONOCYTES # (AUTO) 0.3 X10'3 (0-0.9); MONOCYTES % (AUTO) 3.3 % (2-12); NEUTROPHILS # (AUTO) 9.1 X10'3 (1.8-7.7); NEUTROPHILS % (AUTO) 88.8 % (42-75); PLATELET COUNT 206 X10'3 (140-440); RED BLOOD COUNT 4.85 X10'6 (4.70-6.10); RED CELL DISTRIBUTION WIDTH 12.7 % (11.5-14.5); WHITE BLOOD COUNT 10.3 X10'3 (4.5-11.0)
[2023-07-20 09:00] LABS: ALANINE AMINOTRANSFERASE 134 U/L (12-78); ALBUMIN 3.9 G/DL (3.4-5.0); ALBUMIN/GLOBULIN RATIO 0.9 (1.1-1.5); ALKALINE PHOSPHATASE 88 IU/L (46-116); ANION GAP 14 (8-16); ASPARTATE AMINO TRANSFERASE 58 U/L (10-37); BILIRUBIN,TOTAL 1.1 MG/DL (0.1-1.0); BLOOD UREA NITROGEN 14 MG/DL (7-18); BUN/CREATININE RATIO 12.5 (10.0-20.0); CHLORIDE 96 MMOL/L (99-107); CREATININE 1.12 MG/DL (0.60-1.10); GLUCOSE 398 MG/DL (70-104); LIPASE 41 U/L (16-77); SODIUM 134 MMOL/L (135-145); TOTAL CARBON DIOXIDE 24.5 MMOL/L (24-32); TOTAL PROTEIN 8.4 G/DL (6.4-8.2); eCRCL 93 ML/MIN; eGFR 78 ML/MIN
[2023-07-20 09:06] LABS: ACETONE NEGATIVE (NEGATIVE)
[2023-07-20 10:15] LABS: BILIRUBIN,URINE NEGATIVE (Neg); CLARITY,URINE SLIGHTLY CLOUDY (Clear); COLOR,URINE YELLOW (Yellow); GLUCOSE, URINE >=1000 mg/dl (Neg); KETONES,URINE >=80 mg/dl (Neg); LEUKOCYTE ESTERASE ,URINE NEGATIVE (Neg); NITRITES, URINE NEGATIVE (Neg); OCCULT BLOOD,URINE NEGATIVE (Neg); PROTEIN,URINE TRACE mg/dl (Neg); UROBILINOGEN,URINE 0.2 E.U/dL (0.2-1.0)
[2023-07-20 10:20] LABS: UA COLLECTION TYPE VOIDED
[2023-07-20 10:26] LABS: SQUAMOUS EPITHELIAL CELL,UR FEW /LPF (FEW)
[2023-07-20 10:28] LABS: BACTERIA,URINE FEW /HPF (Neg); RBC,URINE 0-2 /HPF (0-2); WBC,URINE 0-4 /HPF (0-4)
[2023-07-20] MEDS ORDERED: insulin regular, human 10 units/0.1 ml syringe IV STA (10:41)
[2023-07-20] MEDS ORDERED: insulin regular, human 10 units/0.1 ml syringe IV ONE (10:45)
[2023-07-20 12:33] LABS: D-DIMER 0.47 MG/L FEU (0-0.50)
[2023-07-20] MEDS ORDERED: Neutra Phos packet PO PRN (12:35)
[2023-07-20] MEDS ORDERED: mag hydrox/Alum hydrox/simeth 30ml oral suspension PO PRN (12:35)
[2023-07-20] MEDS ORDERED: sodium bicarbonate (8.4%) inj. 100 MEQ in dextrose 5% water 500ml 500 ML IV PRN (12:35)
[2023-07-20] MEDS ORDERED: morphine 2 MG/ML inj. syringe IV PRN ×2 (12:35)
[2023-07-20] MEDS ORDERED: normal saline 1000ml 1,000 ML IV SCH (12:35)
[2023-07-20] MEDS ORDERED: Insulin Reg/NS 100units/100mL 100 ML IV SCH (12:35)
[2023-07-20] MEDS ORDERED: potassium CL 20mEq in D5-1/2NS 1,000 ML IV PRN (12:35)
[2023-07-20] MEDS ORDERED: acetaminophen 650mg rectal suppository RC PRN (12:35)
[2023-07-20] MEDS ORDERED: magnesium Cl slow-release 64mg tablet PO PRN (12:35)
[2023-07-20] MEDS ORDERED: sodium bicarbonate (8.4%) inj. 50 MEQ in dextrose 5% water 500ml 250 ML IV PRN (12:35)
[2023-07-20] MEDS ORDERED: sodium phosphate inj. 30 MMOL in dextrose 5%-water 250 ML IV PRN (12:35)
[2023-07-20] MEDS ORDERED: magnesium 4gm in 100ml NS 100 ML IV PRN (12:35)
[2023-07-20] MEDS ORDERED: HYDROcodone/acetaminophen 5mg/325mg tablet PO PRN ×3 (12:35)
[2023-07-20] MEDS ORDERED: magnesium hydroxide 30ml (MOM) UD suspension PO PRN (12:35)
[2023-07-20] MEDS ORDERED: acetaminophen 325mg tablet PO PRN (12:35)
[2023-07-20] MEDS ORDERED: magnesium 2GM in 50ml NS 50 ML IV PRN (12:35)
[2023-07-20] MEDS ORDERED: potassium Cl 40MEQ/1/2NS 520ml 520 ML IV PRN ×3 (12:35)
[2023-07-20] MEDS ORDERED: potassium Cl 20 mEq SR tablet PO PRN ×2 (12:35)
[2023-07-20] MEDS ORDERED: sodium phosphate inj. 15 MMOL in dextrose 5%-water 250 ML IV PRN (12:35)
[2023-07-20] MEDS ORDERED: ondansetron/PF 4mg/2ml inj IV PRN (12:35)
[2023-07-20] MEDS ORDERED: insulin regular, human U-100 3ml vial - multi-dose IV PRN (12:35)
[2023-07-20] MEDS ORDERED: ketorolac trometh. 30mg/ml inj. IV STA (12:42)
[2023-07-20] MEDS ORDERED: ketorolac tromethamine 15mg/ml inj. IV STA (12:58)
[2023-07-20] MEDS: normal saline 1000ml 1,000 ML IV SCH ×5 (13:19→20:35)
[2023-07-20 13:47] LABS: HEMOGLOBIN A1C 8.4 % (4.5-6.2)
[2023-07-20] MEDS ORDERED: MESSAGE TO PHARMACY PO ONE (13:55)
[2023-07-20] MEDS ORDERED: glucagon, human recombinant 1mg kit SUBCUT PRN (13:55)
[2023-07-20] MEDS ORDERED: DEXTROSE 15 GM of carb/4 tabs (each vial/BOTTLE has 4 tablets) PO PRN ×2 (13:55)
[2023-07-20] MEDS ORDERED: dextrose 50%-water 50ml dispensing syringe IV PRN ×2 (13:55)
[2023-07-20 14:00] LABS: ANION GAP 11 (8-16); BLOOD UREA NITROGEN 13 MG/DL (7-18); BUN/CREATININE RATIO 13.8 (10.0-20.0); CALCIUM 7.6 MG/DL (8.5-10.1); CHLORIDE 100 MMOL/L (99-107); CREATININE 0.94 MG/DL (0.60-1.10); GLUCOSE 283 MG/DL (70-104); PHOSPHORUS 3.3 MG/DL (2.3-4.5); POTASSIUM 3.6 MMOL/L (3.5-5.1); SODIUM 136 MMOL/L (135-145); TOTAL CARBON DIOXIDE 25.4 MMOL/L (24-32); eCRCL 111 ML/MIN; eGFR > 90 ML/MIN
[2023-07-20] MEDS: insulin Lispro (HumaLOG) vial - multi-dose SQ SCH ×2 (15:26→19:41)
[2023-07-20 17:30] LABS: ANION GAP 9 (8-16); BLOOD UREA NITROGEN 11 MG/DL (7-18); BUN/CREATININE RATIO 10.7 (10.0-20.0); CALCIUM 7.1 MG/DL (8.5-10.1); CHLORIDE 101 MMOL/L (99-107); CREATININE 1.03 MG/DL (0.60-1.10); GLUCOSE 269 MG/DL (70-104); MAGNESIUM 1.6 MG/DL (1.5-2.4); POTASSIUM 3.4 MMOL/L (3.5-5.1); SODIUM 136 MMOL/L (135-145); TOTAL CARBON DIOXIDE 25.7 MMOL/L (24-32); eCRCL 102 ML/MIN; eGFR 86 ML/MIN
[2023-07-20] MEDS: K and/or MAG REPLACEMENT MC SCH (19:22)
[2023-07-20] MEDS: docusate sod 100mg capsule PO SCH (19:28)
[2023-07-20] MEDS ORDERED: K and/or MAG REPLACEMENT MC SCH (20:00)
[2023-07-20] MEDS ORDERED: insulin glargine (Lantus) pen - multi-dose SQ SCH (21:00)
[2023-07-20] MEDS: HYDROcodone/acetaminophen 10/325mg tab PO PRN (21:17)
[2023-07-21 01:00] VITALS: BP 141/68; PULSE 94; RESP 16; TEMP 98.8; O2SAT 96
[2023-07-21 01:30] VITALS: RESP 16; O2SAT 96
[2023-07-21 07:00] VITALS: BP 120/77; PULSE 69; RESP 18; TEMP 98.7; O2SAT 100
[2023-07-21] MEDS: docusate sod 100mg capsule PO SCH (07:55)
[2023-07-21 07:56] LABS: BASOPHILS % (AUTO) 0.2 % (0-1); EOSINOPHILS # (AUTO) 0.2 X10'3 (0-0.9); HEMATOCRIT 41.7 % (42.0-52.0); HEMOGLOBIN 14.1 g/dl (14.0-17.9); LYMPHOCYTES # (AUTO) 0.9 X10'3 (1.1-4.8); LYMPHOCYTES % (AUTO) 16.6 % (21-51); MEAN CORPUSCULAR HEMOGLOBIN 32.9 PG (27.0-31.0); MEAN CORPUSCULAR HGB CONC 33.8 g/dL (33.0-36.5); MEAN CORPUSCULAR VOLUME 97.3 FL (78-98); MONOCYTES # (AUTO) 0.5 X10'3 (0-0.9); MONOCYTES % (AUTO) 10.1 % (2-12); NEUTROPHILS # (AUTO) 3.8 X10'3 (1.8-7.7); NEUTROPHILS % (AUTO) 70.1 % (42-75); PLATELET COUNT 160 X10'3 (140-440); RED BLOOD COUNT 4.29 X10'6 (4.70-6.10); WHITE BLOOD COUNT 5.4 X10'3 (4.5-11.0)
[2023-07-21] MEDS: K and/or MAG REPLACEMENT MC SCH (08:00)
[2023-07-21 08:24] LABS: ALANINE AMINOTRANSFERASE 99 U/L (12-78); ALBUMIN 2.8 G/DL (3.4-5.0); ALBUMIN/GLOBULIN RATIO 0.7 (1.1-1.5); ALKALINE PHOSPHATASE 60 IU/L (46-116); ANION GAP 10 (8-16); ASPARTATE AMINO TRANSFERASE 70 U/L (10-37); BILIRUBIN,TOTAL 0.8 MG/DL (0.1-1.0); BLOOD UREA NITROGEN 7 MG/DL (7-18); BUN/CREATININE RATIO 8.2 (10.0-20.0); CALCIUM 7.5 MG/DL (8.5-10.1); CHLORIDE 99 MMOL/L (99-107); CREATININE 0.85 MG/DL (0.60-1.10); GLUCOSE 289 MG/DL (70-104); MAGNESIUM 1.8 MG/DL (1.5-2.4); PHOSPHORUS 2.6 MG/DL (2.3-4.5); POTASSIUM 3.7 MMOL/L (3.5-5.1); SODIUM 132 MMOL/L (135-145); TOTAL CARBON DIOXIDE 22.7 MMOL/L (24-32); TOTAL PROTEIN 6.6 G/DL (6.4-8.2); eCRCL 123 ML/MIN; eGFR > 90 ML/MIN
[2023-07-21] MEDS: HYDROcodone/acetaminophen 10/325mg tab PO PRN (09:54)
[2023-07-21] MEDS: insulin Lispro (HumaLOG) vial - multi-dose SQ SCH ×2 (10:06→13:51)
[2023-07-21] MEDS ORDERED: LANTUS SQ (10:34)
[2023-07-21 11:00] VITALS: BP 130/76; PULSE 100; RESP 21; TEMP 97.7; O2SAT 95
== END 2023-07-21 14:25 | disposition home or self-care (01) | DRG 420 ==
LOC: ER 07:18 → ED HOLD 13:40 → EDBEDREQ 22:47 → PCU 3S 07-21 00:30
PROVIDERS: ADMIT Internal Medicine; ATTEND Internal Medicine
DX: E10.10 Type 1 diabetes mellitus with ketoacidosis without coma (principal); E83.51 Hypocalcemia; Z20.822 Contact with and (suspected) exposure to COVID-19; I10 Essential (primary) hypertension; F32.A Depression, unspecified; E87.6 Hypokalemia; E66.9 Obesity, unspecified; Z68.38 Body mass index [BMI] 38.0-38.9, adult; Z79.4 Long term (current) use of insulin
CPT/HCPCS: 36415; 71045; 76700; 80048; 80053; 81001; 82009; 82948; 83036; 83605; 83690; 83735; 84100; 84484; 85025; 85379; 87040; 87088; 87502; 87503; 87811; 99285; G0378; J1815; J1885; J2270; J2405; J3480; J3490; J7030

== ENCOUNTER 2023-08-01 00:13 | Emergency (ER) | payer MEDICAID ==
[~2023-08-01] VITALS: Ht 172.7 cm; Wt 113.9 kg
[~2023-08-01 00:13] MED LIST changes: +LANTUS SQ
[2023-08-01] MEDS ORDERED: insulin regular, human 10 units/0.1 ml syringe SQ ONE ×2 (01:40→03:25)
[2023-08-01 02:25] LABS: ALANINE AMINOTRANSFERASE 204 U/L (12-78); ALBUMIN 3.8 G/DL (3.4-5.0); ALBUMIN/GLOBULIN RATIO 0.8 (1.1-1.5); ALKALINE PHOSPHATASE 81 IU/L (46-116); ANION GAP 8 (8-16); ASPARTATE AMINO TRANSFERASE 101 U/L (10-37); BILIRUBIN,TOTAL 0.8 MG/DL (0.1-1.0); BLOOD UREA NITROGEN 9 MG/DL (7-18); BUN/CREATININE RATIO 8.3 (10.0-20.0); CALCIUM 9.4 MG/DL (8.5-10.1); CHLORIDE 98 MMOL/L (99-107); CREATININE 1.09 MG/DL (0.60-1.10); GLUCOSE 344 MG/DL (70-104); SODIUM 135 MMOL/L (135-145); TOTAL CARBON DIOXIDE 29.4 MMOL/L (24-32); TOTAL PROTEIN 8.4 G/DL (6.4-8.2); eCRCL 98 ML/MIN; eGFR 81 ML/MIN
[2023-08-01 02:36] LABS: BASOPHILS # (AUTO) 0.1 X10'3 (0-0.2); BASOPHILS % (AUTO) 0.7 % (0-1); EOSINOPHILS # (AUTO) 0.3 X10'3 (0-0.9); EOSINOPHILS % (AUTO) 3.6 % (0-6); HEMATOCRIT 47.4 % (42.0-52.0); HEMOGLOBIN 16.5 g/dl (14.0-17.9); LYMPHOCYTES # (AUTO) 2.7 X10'3 (1.1-4.8); LYMPHOCYTES % (AUTO) 30.2 % (21-51); MEAN CORPUSCULAR HEMOGLOBIN 33.1 PG (27.0-31.0); MEAN CORPUSCULAR HGB CONC 34.8 g/dL (33.0-36.5); MEAN CORPUSCULAR VOLUME 95.3 FL (78-98); MEAN PLATELET VOLUME 8.5 FL (7.4-10.4); MONOCYTES # (AUTO) 0.5 X10'3 (0-0.9); MONOCYTES % (AUTO) 5.6 % (2-12); NEUTROPHILS # (AUTO) 5.3 X10'3 (1.8-7.7); NEUTROPHILS % (AUTO) 59.9 % (42-75); PLATELET COUNT 305 X10'3 (140-440); RED BLOOD COUNT 4.98 X10'6 (4.70-6.10); WHITE BLOOD COUNT 8.9 X10'3 (4.5-11.0)
[2023-08-01] MEDS ORDERED: INSU100V30 SQ (03:18)
[2023-08-01 03:28] VITALS: BP 135/85; PULSE 78; RESP 16; TEMP 98.3; O2SAT 98
== END 2023-08-01 03:29 | disposition home or self-care (01) ==
LOC: ER 00:14
DX: R73.9 Hyperglycemia, unspecified (principal); E11.9 Type 2 diabetes mellitus without complications; I10 Essential (primary) hypertension; Z79.899 Other long term (current) drug therapy
CPT/HCPCS: 36415; 80053; 82948; 85025; 96372; 99284; J1815

== ENCOUNTER 2024-05-25 22:15 | Emergency (ER) | payer MEDICAID ==
[~2024-05-25] VITALS: Ht 171.4 cm; Wt 114.4 kg
[~2024-05-25 22:15] MED LIST changes: -HUM7525 SQ; +INSU100V64 SQ; -LANTUS SQ
[2024-05-25 22:49] LABS: BASOPHILS # (AUTO) 0.1 X10'3 (0-0.2); BASOPHILS % (AUTO) 1.3 % (0-1); EOSINOPHILS # (AUTO) 0.1 X10'3 (0-0.9); EOSINOPHILS % (AUTO) 0.7 % (0-6); HEMATOCRIT 47.2 % (42.0-52.0); HEMOGLOBIN 16.3 g/dl (14.0-17.9); LYMPHOCYTES # (AUTO) 2.4 X10'3 (1.1-4.8); MEAN CORPUSCULAR HEMOGLOBIN 32.6 PG (27.0-31.0); MEAN CORPUSCULAR HGB CONC 34.4 g/dL (33.0-36.5); MEAN CORPUSCULAR VOLUME 94.7 FL (78-98); MEAN PLATELET VOLUME 8.1 FL (7.4-10.4); MONOCYTES # (AUTO) 0.6 X10'3 (0-0.9); MONOCYTES % (AUTO) 6.9 % (2-12); NEUTROPHILS % (AUTO) 62.1 % (42-75); PLATELET COUNT 262 X10'3 (140-440); RED BLOOD COUNT 4.99 X10'6 (4.70-6.10); RED CELL DISTRIBUTION WIDTH 12.8 % (11.5-14.5); WHITE BLOOD COUNT 8.1 X10'3 (4.5-11.0)
[2024-05-25 23:05] LABS: ALANINE AMINOTRANSFERASE 107 U/L (12-78); ALBUMIN 4.1 G/DL (3.4-5.0); ALKALINE PHOSPHATASE 62 IU/L (46-116); ANION GAP 9 (8-16); ASPARTATE AMINO TRANSFERASE 51 U/L (10-37); BLOOD UREA NITROGEN 10 MG/DL (7-18); BUN/CREATININE RATIO 9.3 (10.0-20.0); CALCIUM 8.8 MG/DL (8.5-10.1); CHLORIDE 101 MMOL/L (99-107); CREATININE 1.08 MG/DL (0.60-1.10); GLUCOSE 158 MG/DL (70-104); POTASSIUM 3.7 MMOL/L (3.5-5.1); SODIUM 136 MMOL/L (135-145); TOTAL CARBON DIOXIDE 25.7 MMOL/L (24-32); TOTAL PROTEIN 8.4 G/DL (6.4-8.2); eCRCL 96 ML/MIN; eGFR 81 ML/MIN
[2024-05-25 23:13] LABS: PRO BRAIN NATRIURETIC PEPTIDE < 30 PG/ML (0-125)
[2024-05-25 23:19] VITALS: BP 121/69; PULSE 69; RESP 18; TEMP 98; O2SAT 98
== END 2024-05-25 23:46 | disposition home or self-care (01) ==
LOC: ER 22:15
DX: F19.10 Other psychoactive substance abuse, uncomplicated (principal); F41.9 Anxiety disorder, unspecified; R07.89 Other chest pain; E11.9 Type 2 diabetes mellitus without complications; I10 Essential (primary) hypertension; Z72.89 Other problems related to lifestyle
CPT/HCPCS: 36415; 71045; 80053; 83880; 84484; 85025; 93005; 99285

== ENCOUNTER 2025-06-01 07:12 | Day surgery (SDC) | payer MEDICAID ==
[~2025-06-01] VITALS: Ht 170.2 cm; Wt 100.0 kg
[~2025-06-01 07:12] MED LIST changes: -INSU100V64 SQ; +SEMA1PEN3 SUBCUT; +ringers solution, lacted 1,000 ML IV SCH
[2025-06-01 07:30] VITALS: BP 112/74; PULSE 72; RESP 16; TEMP 98.4; O2SAT 98
[2025-06-01] MEDS ORDERED: simethicone 40mg/0.6ml oral drops 15ml ONE (10:00)
[2025-06-01] MEDS ORDERED: fentaNYL/PF 50MCG/1 ML 2ML syringe ONE (10:14)
[2025-06-01] MEDS ORDERED: midazolam 1 mg/ML 2ml injection ONE ×2 (10:14→10:28)
[2025-06-01] MEDS ORDERED: propofol inj 20 ML IV ONE (10:28)
[2025-06-01 10:36] VITALS: BP 112/63; PULSE 82; RESP 14; O2SAT 98
[2025-06-01 10:40] VITALS: BP 107/70; PULSE 69; RESP 13; O2SAT 99
[2025-06-01 10:50] VITALS: BP 115/71; PULSE 84; RESP 17; O2SAT 96
[2025-06-01 11:00] VITALS: BP 114/75; PULSE 72; RESP 13; O2SAT 95
[2025-06-01 11:10] VITALS: BP 116/73; PULSE 72; RESP 13; O2SAT 95
== END 2025-06-01 11:41 | disposition home or self-care (01) ==
LOC: GI LAB 07:12
PROVIDERS: ATTEND Internal Medicine Gastroenterology
DX: K92.1 Melena (principal); I10 Essential (primary) hypertension; E11.9 Type 2 diabetes mellitus without complications; E66.9 Obesity, unspecified; G47.30 Sleep apnea, unspecified; F14.90 Cocaine use, unspecified, uncomplicated; Z79.84 Long term (current) use of oral hypoglycemic drugs; Z79.899 Other long term (current) drug therapy; Z98.890 Other specified postprocedural states; Z68.34 Body mass index [BMI] 34.0-34.9, adult
CPT/HCPCS: 45378; J2250; J2704; J3010; J7120; Z7512; 45380; A4620

== ENCOUNTER 2025-07-01 16:23 | Emergency (ER) | payer MEDICAID ==
[~2025-07-01] VITALS: Ht 177.8 cm; Wt 93.2 kg
[~2025-07-01 16:23] MED LIST changes: -ringers solution, lacted 1,000 ML IV SCH
[2025-07-01 16:24] VITALS: BP 153/87; PULSE 100; RESP 18; TEMP 97; O2SAT 99
--- NOTE | 2025-07-01 16:39 | Physician Documentation ---
History of Present Illness ~ Chief Complaint: Sore Throat Stated Complaint: SORE THROAT Time Seen by MD: 16:33 Primary Medical Doctor: [facility] 30 Year old male presents to the ED for a chronic irritated throat. States his symptoms have been going on since early May. He has been evaluated in the outpatient setting and tested for strep mono HIV because he had a previous nee dle stick. His he states that he does not have any throat pain per se but has general irritation in his pharynx. Denies any other symptoms including weakness fatigue fevers neck pain lymphadenopathy Pertinent positive, patient is a habitual nicotine vapor Day of Onset: Jul 01, 2025 Medication Reconciliation Allergies: Coded Allergies: No Known Allergies (Unverified , 07/01/25) Scheduled Semaglutide (Ozempic), 0.5 MG SUBCUT Q7D, (Reported) Past Medical History Past Medical History: Hypertension, Diabetes, Extremity Fracture Past Surgical History: noncontributory, other Other Past Surgical History: Surgery on left eyelid; denies any other surgical history Alcohol Use: Occasionally Drug Use: none Lives with: Family Lives In: Home Occupation: employed Review of Systems All Other Systems at this time: Reviewed and Negative ROS As stated above in the HPI, otherwise all systems are reviewed and negative. Physical Exam Vital Signs: Temperature: 97.0, Source: Temporal, Heart Rate: 100, Respiratory Rate: 18, BP: 153/87, Pulse Oximetry: 99, Weight: 93.180 Oxygen Flow Rate: 0 Physical Exam General: Alert, no apparent distress. HEENT: PERRL, EOMI, no injection, moist mucous membranes. Mild erythema in the pharynx no exudate no enlarged tonsils Neck: Full range of motion. Psychiatric: Normal mood and affect. Skin: Normal color, warm and dry. No edema, no ecchymosis. Progress Results/Orders Results/Orders Vital Signs 07/01/25 16:24 Temp 97.0 Pulse 100 Resp 18 B/P (MAP) 153/87 Pulse Ox 99 O2 Flow Rate 0 Medical Decision Making Additional information obtaine: old records, N/A Findings Considering the patient has been fully worked up in the outpatient setting and has persistent symptoms and no other associated symptoms I suspect that nicotine vaping is what is causing his throat irritation. Advise him to cease using nicotine for at least 2-3 weeks to to rule this out in addition I recommended if he does have persistent symptoms to request a referral from his primary care due to go see an ear nose throat doctor Ear Diff. Dx: Considerations: Unlikely: Abrasion, Cerumen impaction, Foreign body, Otitis externa, Barotrauma, Otitis media, Perforation, Referred pain- dental, Referred pain-pharyngitis, Referred pain-sinusitis, Referred pain-TMJ syn., Tympanic Membrane Injury, Other Eye Diff. Dx: Considerations: Unlikely: Chalazoin, Conjuctivits-allergic, Conjuctivitis-bacterial, Conjuctivits-chlamydial, Conjuctivitis-viral, Corneal abrasion, Corneal laceration, Corneal ulceration, Foreign body-conjuctiva, Foreign body-corneal, Foreign body-intraocular, Foreign body-lid, Glaucoma, Globe rupture, Hordeolum, Iritis, Orbital cellulitis, Periobital cellulitis, Retinal artery occulsion, Retinal vein occlusion, Rust ring, Subconjunctival hem, Ultraviolet keratitis, Uveitis, Vitreous hemorrhage, Other Nose Diff. Dx: Considerations: Unlikely: Abrasion, Anterior nasal bleed, A vulsion, Contusion, Coagulopathy, Fracture-nasal bone, Fracture-septum, Hypertension, Laceration, Other, Posterior nasal bleed, Retained foreign body, Septal hematoma Tooth Diff. Dx: Considerations: Unlikely: Alveolar fracture, Aveolar osteitis, ANUG, Facial cellulitis, Periapical abscess, Periodontal abscess, Post- extraction bleeding, Pulpitis, Trigeminal neuralgia, Tooth-avulsion, Tooth- eruption, Tooth-fracture, Tooth-subluxation, Other Throat Diff Dx: Considerations: Include: AIDS, Epiglottitis, Esophageal candidiasis, Hand foot mouth disease, Herpangina, Herpetic stomatitis, Herpes simplex, Infection mononucleosis, Immunodeficiency, Santhosh's angina, Peritonsillar abscess, Peritonsillar cellulitis, Pharyngitis-diphtheria, Pharyngitis-strepococcal, Pharyngitis-viral, Thrush, URI, Other Departure Disposition: HOME / SELF CARE / HOMELESS Impression: Primary Impression: Irritation of pharynx Condition: Stable Discharge Instructions: Sore Throat Additional Instructions: As discussed cease using nicotine for an extended period of time to essentially rule it out as the cause of your throat irritation. If it persists I recommend getting a referral from your primary care for an ear nose throat evaluation Referrals: NO PRIMARY CARE PROVIDER (PCP) Education Educated: Patient Educated regarding: diagnosis Signature Scribe Signature: 8 Attestation: Scribed for Emergency,Department by Viral Yang NP . 07/01/25 16:39 VIRAL CASTILLO NP Jul 01, 2025 16:39
== END 2025-07-01 16:48 | disposition home or self-care (01) ==
LOC: ER 16:23
DX: J39.2 Other diseases of pharynx (principal); E11.9 Type 2 diabetes mellitus without complications; I10 Essential (primary) hypertension; Z79.899 Other long term (current) drug therapy; Z72.89 Other problems related to lifestyle
CPT/HCPCS: 99282

== ENCOUNTER 2025-07-27 19:42 | Emergency (ER) | payer MEDICAID ==
[~2025-07-27] VITALS: Ht 170.2 cm; Wt 107.1 kg
[2025-07-27 19:47] VITALS: BP 138/92; PULSE 101; RESP 17; TEMP 98.6; O2SAT 100
--- NOTE | 2025-07-27 20:00 | Physician Documentation ---
History of Present Illness ~ General Chief Complaint: Rash Stated Complaint: RASH Time Seen by MD: 19:56 OK to notify your PCP?: Yes Primary Medical Doctor: [facility] Source: patient Mode of Arrival: POV Exam Limitations: no limitations History of Present Illness Initial Comments Patient reports that he was stuck by an unknown needle in April of this year. Ever since he has noticed having a red throat. He denies any cough, congestion or pain in his throat. He reports having a possible rash to his bilateral upper arms. He has received a HIV exposure panel through his primary care provider and has been negative so far. Requesting repeat testing Medication Reconciliation Allergies: Coded Allergies: No Known Allergies (Unverified , 07/27/25) Scheduled Semaglutide (Ozempic), 0.5 MG SUBCUT Q7D, (Reported) Past Medical History Past Medical History: Hypertension, Diabetes, Extremity Fracture Past Surgical History: noncontributory, other Other Past Surgical History: Surgery on left eyelid; denies any other surgical history Alcohol Use: Occasionally Drug Use: none Lives with: Family Lives In: Home Occupation: employed Review of Systems All Other Systems at this time: Reviewed and Negative Physical Exam Physical Exam Vital Signs: RN Vital Signs have been reviewed: Yes, Temperature: 98.6, Source: Oral, Heart Rate: 101, Respiratory Rate: 17, BP: 138/92, Pulse Oximetry: 100, Weight: 107.100 Oxygen Flow Rate: 0 Pulse Oximetry Reflects: adequate oxygenation Physical Exam General: Alert, no distress. HEENT: No injection, moist mucous membranes. Posterior pharynx erythema, no exudates, tonsils 1+ bilaterally. Uvula midline Neck: Full range of motion. Respiratory: No respiratory distress, equal chest rise and fall. Chest: No accessory muscle use. Cardiovascular: Regular rate and rhythm. Gastrointestinal: Nondistended. Extremities: Normal range of motion, no deformity. Neurologic: Oriented x4. Psychiatric: Normal mood and affect. Skin: Normal color, warm and dry. No rash seen, there is some darkening of the pores to his bilateral upper extremities Progress Results/Orders Reviewed/noted all lab results: Yes Results/Orders Vital Signs 07/27/25 19:47 Temp 98.6 Pulse 101 Resp 17 B/P (MAP) 138/92 Pulse Ox 100 O2 Flow Rate 0 Medical Decision Making Additional information obtaine: old records Findings Discussed with patient that it is not time for him to have repeat HIV/exposure panel done and that is something that he can do on outpatient basis with his primary care provider. There is some darkening of the pores to the bilateral upper extremities but no rash seen. He denies any pain, itching or drainage from his pores. Reassured patient that there is no signs of infection that would require any antibiotics. Differential Diagnosis Scabies, cellulitis, for the fever, strep throat, viral xanthelasma rash. Departure Disposition: HOME / SELF CARE / HOMELESS Impression: Primary Impression: General medical examination Condition: Stable Discharge Instructions: General Discharge Instructions Additional Instructions: Follow up with her primary care provider for your concerns repeat HIV exposure panel as it is not due yet. Return back here for any new or worsening symptoms. Referrals: NO PRIMARY CARE PROVIDER (PCP) Education Educated: Patient Educated regarding: diagnosis, treatment, prognosis, need for follow up Additional Comment Medical Screen Exam This patient recieved a medical screening examination. After reviewing the in dividual's medical complaints with presenting symptoms and performing an appropriate physical examination, it was determined that no immediate life- threatening emergency medical condition is present. This individual is also not a women having contractions. Signature Scribe Signature: .. Attestation: Scribed for Opal Day [facility] by Opal Yang NP . 07/27/25 20:19 Parts of this note were created using [employer] voice recognition software program. While efforts were made to correct any mistakes made by this voice recognition software program, nonsensical phrases may remain in this note. In addition, there may be errors and syntax, grammar, content and spelling. OPAL DAYP Jul 27, 2025 20:00
== END 2025-07-27 20:05 | disposition home or self-care (01) ==
LOC: ER 19:43
DX: Z00.00 Encounter for general adult medical examination without abnormal findings (principal); I10 Essential (primary) hypertension; E11.9 Type 2 diabetes mellitus without complications; Z79.899 Other long term (current) drug therapy; Z72.89 Other problems related to lifestyle
CPT/HCPCS: 99282